=== PATIENT | female | born 1950 | race Caucasian/White ===

== ENCOUNTER 2020-03-14 16:28 | Emergency (ER) | payer OTHER | END 2020-03-14 16:52 | disposition home or self-care (01) | LOC: JVIRT 16:28 | DX: Z03.818 Encounter for observation for suspected exposure to other biological agents ruled out (principal) | CPT/HCPCS: C9803; G2012-GT; U0003 ==

== ENCOUNTER 2020-03-23 10:14 | Emergency (ER) | payer OTHER | END 2020-03-23 10:48 | disposition home or self-care (01) | LOC: JVIRT 10:14 | DX: Z20.828 Contact with and (suspected) exposure to other viral communicable diseases (principal) | CPT/HCPCS: C9803; G2012-GT; Q3014-GT; U0003 ==